=== PATIENT | male | born 1945 | race Asian ===

== ENCOUNTER 2020-07-17 17:38 | Emergency (ER) | payer OTHER, SELFPAY ==
[~2020-07-17] VITALS: Ht 167.6 cm; Wt 54.4 kg
[2020-07-17 17:40] VITALS: Ht 167.6 cm; Wt 54.4 kg
[2020-07-17 19:19] LABS: BASOPHIL % 1.1 % (0.2-1.5); PLATELET COUNT 280 x10^3mcL (152-348); RED CELL DISTRIBUTION WIDTH 14.2 % (12.1-16.2)
[2020-07-17 21:29] LABS: CALCIUM 8.6 mg/dL (8.5-10.1); CARBON DIOXIDE 26.1 mmol/L (21-32); CHLORIDE SERUM 107 mmol/L (98-107); GLUCOSE SERUM 95 mg/dL (74-106); POTASSIUM SERUM 4.4 mmol/L (3.5-5.1); SODIUM SERUM 141 mmol/L (136-145)
[2020-07-17 21:33] LABS: ALKALINE PHOSPHATASE 38 U/L (46-116); ALT/SGPT 17 U/L (16-63); AST/SGOT 15 U/L (15-37); BILIRUBIN TOTAL 0.5 mg/dL (0.20-1.00); TOTAL PROTEIN, SERUM 6.5 g/dL (6.4-8.2)
[2020-07-17 21:43] LABS: ALBUMIN 3.3 g/dL (3.4-5.0)
[2020-07-17 21:58] VITALS: BP 122/75
== END 2020-07-17 21:58 | disposition left against medical advice (07) ==
LOC: ED 17:38
PROVIDERS: Emergency Medicine
DX: J90 Pleural effusion, not elsewhere classified (principal); Z20.828 Contact with and (suspected) exposure to other viral communicable diseases
CPT/HCPCS: 83880; U0003

== ENCOUNTER 2020-07-19 18:42 | Emergency (ER) | payer OTHER, SELFPAY ==
[~2020-07-19] VITALS: Ht 167.6 cm; Wt 54.4 kg
[2020-07-19 18:56] VITALS: Ht 167.6 cm; Wt 54.4 kg
[2020-07-19 22:14] VITALS: BP 107/67
== END 2020-07-19 22:30 | disposition left against medical advice (07) ==
LOC: ED 18:42
DX: R06.02 Shortness of breath (principal); Z13.9 Encounter for screening, unspecified